=== PATIENT | female | born 1995 | race Caucasian/White ===

== ENCOUNTER 2023-08-07 13:31 | Outpatient (AMB) | payer OTHER, SELFPAY ==
--- NOTE | 2023-08-07 13:32 | A.OFFVIS_ITS ---
Vital Signs 08/07/23 13:34 Height 5 ft Weight 241 lb BMI 47.1 BP 140/100 H Blood Pressure Location Rt brachial Position Sitting Pulse 96 Pulse Source Pulse Oximeter Pulse Oximetry (%) 99 Oxygen Delivery Method Room Air Intake Visit Reasons: ENP-Ongoin Headaches of long duration-CONF Intake Note: Patient presents for ongoing headaches of long duration.patient has headaches daily. Allergies acetaminophen [Tylenol] Allergy (Unknown, Verified 08/07/23 13:37) hives Medication List - Last Reconciled 08/07/23 by PATRICE Griffith albuterol sulfate 90 mcg/actuation (Ventolin HFA) inhalation DAILY cholecalciferol (vitamin D3) PO clonazepam mg PO drospirenone (contraceptive) (Slynd) 1 tab PO DAILY ibuprofen 800 mg PO TID levothyroxine 200 mcg PO DAILY metoclopramide HCl mg PO HPI Comments Details: Right- handed 27-yr-old female presents for new pt evaluation of headache disorder. Pt reports she has had migraine since age 11. She previously was seen by [facility] neurology, but was lost to care there as she never responded to tx. Pt comes today to reestablish care with neurology to care as she is having increasing and prolonged migraine attacks. PMH and ROS is significant for: Mood d/o: Anxiety, Depression- well-controlled Respiratory d/o: Asthma- well-controlled CV disease: chronic murmur Endocrine or metabolic d/o: h/o thyroid cancer- dx'd in 2018 s/p radioactive iodine f/b sx resection. F/b [facility] Endocrinology- states CA is in remission. Has a pulmonary nodule they are monitoring. Family history of migraine or other headache disorder: mother, aunt Pertinent denials include: Musculoskeletal disorders or injury, History of concussion/head injury, Clotting or hematology d/o, History of seizure, syncope, or drop attacks, GI d/o, Constipation, Leg Cramps, Headache questionnaire:? Previous work-up: None Typical headache characteristics: Prodrome symptoms: None Aura: Small ball flashes through her left eye and then vision will become blurry and then dizziness. Pain intensity: 6/10 Location, quality, characteristics: Bilateral frontal, temporal, retroorbital throbbing and aching pain Associated symptoms? photophobia, osmophobia, nausea, (no vomiting), not right in space dizziness, activity intolerance. Postdrome: None Triggers: strong smells, stress, skipping meals, weather changes. Menstrual triggers: none. Currently no menses- on OCP Time of day: Usually early in the am- wakes up with a headache, or comes later in the day Duration and Frequency: Migraine lasts all day, 15 headache days in the past month. How does headache impact your life? Sometimes may miss her personal activities. Current acute medication use/interventions: Ibuprofen- sometimes works. Current preventative medication use: None Non-pharmacological interventions: Ice pack Lifestyle considerations: Sleep routine: Bedtime: 8pm Wake-up time: 6am Sleep difficulties: Endorses: Snoring, Fatigue. Caffeine use: 2-3 cups per week, only in am Substance use: ,Alcohol- social Exercise:?walks twice a week Employment:?Works at [employer] in [employer]- on a [employer] Family planning: None PFSH Surgical History (Updated 08/07/23 @ 13:39 by GINA Pate) H/O neck dissection H/O thyroidectomy Family History (Updated 08/07/23 @ 13:40 by GINA Pate) Mother HTN (hypertension) Social History (Updated 08/07/23 @ 13:40 by GINA Pate) Alcohol intake: current Patient Tobacco Use Status: Never used Tobacco Physical Exam Vital Signs: Last Vital Signs Pulse 96 08/07/23 13:34 BP 140/100 H 08/07/23 13:34 Pulse Ox 99 08/07/23 13:34 Oxygen Delivery Method Room Air 08/07/23 13:34 BMI result Body Mass Index 47.1 Const Orientation/consciousness: patient oriented x3 HEENT Other: No palpable scalp tenderness. Mallampati stage IV Head: Yes normocephalic Resp Effort & Inspection: normal respiratory effort and able to speak in complete sentences Neuro General: patient oriented x3 Cranial nerves: Yes CN's II-XII intact bilaterally Cognition (Neuro): normal cognition Gait exam (Neuro): Normal gait present Motor exam (neuro): 5/5 motor strength present throughout Deep tendon reflexes (DTR's): Right triceps reflex intensity grade: 2+, Left triceps reflex intensity grade: 2+, Rt Biceps (C5, C6): 2+, Left biceps reflex intensity grade: 2+, Right brachioradialis reflex intensity grade: 2+, Left brachioradialis reflex intensity grade: 2+, Right patellar reflex intensity grade: 1+ and Left patellar reflex intensity grade: 1+ Coordination: [id number] test normal, tandem gait normal and Romberg test negative Pupils: Normal pupillary reactivity/response: bilateral Psych Appearance: grossly normal Mental Status: mental status grossly normal Speech and movement: Normal speech and movement present Affect: normal affect Attitude: cooperative Thought process: Normal thought process present Assessment & Plan Assessment & Plan (1) Worsening headaches: Code(s): R51.9 - Headache, unspecified Category: Medical (2) Visual aura: Code(s): H53.9 - Unspecified visual disturbance Category: Medical (3) Fatigue: Code(s): R53.83 - Other fatigue Category: Medical (4) Snoring: Code(s): R06.83 - Snoring Category: Medical (5) Sleep difficulties: Code(s): G47.9 - Sleep disorder, unspecified Category: Medical (6) Morning headache: Code(s): R51.9 - Headache, unspecified Category: Medical (7) Migraine with aura: Code(s): G43.109 - Migraine with aura, not intractable, without status migrainosus Category: Medical Plan Pt advised to undergo: Brain MRI w/wo d/t headache, visual aura, thyroid CA. HST to assess for sleep apnea. For overall headache management: Optimize good self-care, including but not limited to maintaining a healthy diet, adequate fluid intake, adequate sleep, and engaging in regular physical activity. For headache triggers: Track headaches, especially after any treatment regimen changes. Migraine [employer] is one of many headache tracking apps. Light sensitivity tips: Patient may try blue light filtering glasses, green glasses, green light therapy. For acute headache treatment: Discussed importance of taking acute medications at the first sign of headache, however stressed importance of avoiding acute medication overuse (especially with combined headache medications). Trial Naratriptan 2.5mg prn. Potential adverse effects of triptans, including but not limited to nausea, fatigue, chest tightness/tingling (usually passes within a few minutes), medication overuse headaches. Previous acute migraine medication trials: Sumatriptan- caused dizziness and felt off. Meloxicam, Cyclobenaprine- ineffective. Acute migraine medication contraindications: None at this time Futire Considerations- Gepant- Ubrelvy (pt does not like dissolvable tabs) For headache prevention medication: Preventative medications should be taken routinely as prescribed for best effect, it may take several weeks for full effect to take effect. Start Riboflavin 400mg qam Start Magnesium 400mg qhs Start Aimovig 140mg sc q month Potential adverse effects of Aimovig, including but not limited to injection site reactions, cramps, constipation, increase in blood pressure. Previous migraine prevention medication trials: Amitriptyline 20mg- ineffective after 2-3 months. Propranolol- caused palpitations. PT- ineffective. Migraine prevention medication contraindications: BBs d/t asthma Pt seen in collaboration w/ Dr Mackenzie Mckoy. Pt to follow-up in 3 months or sooner prn. Orders: Orders MR head/brain wo/w con Today C73 - Malignant neoplasm of thyroid gland, H53.9 - Unspecified visual disturbance, R51.9 - Headache, unspecified RT home sleep study Today G47.9 - Sleep disorder, unspecified, R06.83 - Snoring, R51.9 - Headache, unspecified, R53.83 - Other fatigue Medications: New riboflavin (vitamin B2) 400 mg PO DAILY 30 days 30 tabs 6RF naratriptan take 1/2 - 1 tab at onset of headache; if no relief may repeat 1 tab after at least 4 hrs; max = 2 tabs/24 hrs orally PRN; 30 days 12 tabs 6RF migraine headache erenumab-aooe (Aimovig Autoinjector) 140 mg subcut ONCE 30 days 1 mL 6RF magnesium oxide may hold for loose stools 400 mg PO BEDTIME 30 days 30 tabs 6RF Coding Level of Care Code New Pt Level 4 (23155) Diagnoses Worsening headaches R51.9 Visual aura H53.9 Fatigue R53.83 Snoring R06.83 Sleep difficulties G47.9 Morning headache R51.9 Migraine with aura G43.109
[2023-08-07 13:34] VITALS: BP 140/100; PULSE 96; O2SAT 99; BMI 47.1
== END 2023-08-07 14:49 | disposition home or self-care (01) ==
PROVIDERS: PCP Internal Medicine; Visit Provider Nurse Practitioner Family
DX: R51.9 Headache, unspecified (principal); H53.9 Unspecified visual disturbance; R53.83 Other fatigue; R06.83 Snoring; G47.9 Sleep disorder, unspecified; G43.109 Migraine with aura, not intractable, without status migrainosus
CPT/HCPCS: 99204

== ENCOUNTER → 2023-08-07 13:31 | Outpatient (BNVA) | payer OTHER, SELFPAY | PROVIDERS: PCP Internal Medicine; Visit Provider Nurse Practitioner Family | DX: R51.9 Headache, unspecified (principal); G43.109 Migraine with aura, not intractable, without status migrainosus; H53.9 Unspecified visual disturbance; R53.83 Other fatigue; R06.83 Snoring; G47.9 Sleep disorder, unspecified | CPT/HCPCS: 99202 ==

== ENCOUNTER 2024-12-06 07:58 | Outpatient (REF) | payer OTHER, SELFPAY ==
--- NOTE | 2024-12-06 08:03 | EMG_ITS ---
Chief complaint: Left hand pain Reason for referral: Evaluate for cubital tunnel and carpal tunnel syndrome Referred by:?RUBINA Brock Procedure done: Left upper extremity NCS/EMG Left median and ulnar motor and sensory studies were performed left radial sensory and median and lateral antecubital brachial sensory study was performed an EMG needle examination was performed. Ulnar motor conduction velocity was slightly slow across elbow. Otherwise no significant abnormality was noted. Impression: Mild left ulnar neuropathy across cubital tunnel MTDD
== END 2024-12-06 07:59 | disposition home or self-care (01) ==
LOC: HO.NEURO 07:58
PROVIDERS: PCP Internal Medicine; Visit Provider Physician Assistant
DX: M79.642 Pain in left hand (principal); G56.22 Lesion of ulnar nerve, left upper limb
CPT/HCPCS: 95886; 95910

== ENCOUNTER → 2024-12-06 08:03 | Outpatient (BNV) | payer OTHER, SELFPAY | PROVIDERS: PCP Internal Medicine; Visit Provider Psychiatry & Neurology Neurology | DX: G56.22 Lesion of ulnar nerve, left upper limb (principal) | CPT/HCPCS: 95886; 95909 ==